=== PATIENT | female | born 1955 ===

== ENCOUNTER 2021-11-13 06:42 | Day surgery (SDC) | payer OTHER ==
[2021-11-13] MEDS ORDERED: MACROBID 100 M100 MG PO (12:13)
[2021-11-13] MEDS ORDERED: ULTRACET PO (12:13)
== END 2021-11-13 16:30 | disposition home or self-care (01) ==
LOC: CIR.AMB 06:42
PROVIDERS: ATTEND Obstetrics & Gynecology Gynecology
DX: N81.11 Cystocele, midline (principal); Z20.822 Contact with and (suspected) exposure to COVID-19